=== PATIENT | male | born 1980 | race African-American/Black ===

== ENCOUNTER 2017-04-08 18:33 | Emergency (ER) | payer OTHER ==
[~2017-04-08] VITALS: Ht 167.6 cm; Wt 65.8 kg
[~2017-04-08 18:33] MED LIST: NORCO 5-325 TA1 EACH PO; PENICILLIN VK500 M1 PO
[2017-04-08] MEDS ORDERED: NAPROSYN500 MG PO (19:36)
[2017-04-08] MEDS ORDERED: MUCINEX D TABL1 EAC1 PO (19:36)
== END 2017-04-08 20:23 | disposition home or self-care (01) ==
LOC: ER 18:33
DX: J11.1 Influenza due to unidentified influenza virus with other respiratory manifestations (principal)

== ENCOUNTER 2017-05-04 04:58 | Emergency (ER) | payer OTHER ==
[~2017-05-04] VITALS: Ht 175.3 cm; Wt 82.6 kg
[~2017-05-04 04:58] MED LIST changes: +MUCINEX D TABL1 EAC1 PO; +NAPROSYN500 MG PO
[2017-05-04] MEDS ORDERED: EXCEDRIN CAPLE1 EACH PO (05:09)
[2017-05-04 05:31] LABS: URINE BILIRUBIN NEGATIVE (Negative); URINE BLOOD 3+ (Negative); URINE CLARITY CLEAR; URINE COLOR YELLOW; URINE GLUCOSE-RANDOM* NEGATIVE (Negative); URINE KETONES NEGATIVE (Negative); URINE LEUKOCYTES-REFLEX NEGATIVE (Negative); URINE NITRITE-REFLEX NEGATIVE (Negative); URINE PROTEIN (DIPSTICK) NEGATIVE (Negative); URINE SPECIFIC GRAVITY 1.025 (1.005-1.035)
[2017-05-04 05:42] LABS: MCH 32.7 pg (26.0-34.0); MCV 96.4 fL (80.0-100.0); PLATELET COUNT 220 thou/uL (150-400); RBC 4.57 mil/uL (4.50-6.00); RDW 12.8 % (10.5-14.5); WBC 3.6 thou/uL (4.0-11.0)
[2017-05-04 05:49] LABS: CALCIUM 8.7 mg/dL (8.5-10.1); CREATININE 0.9 mg/dL (0.7-1.3); POTASSIUM 4.4 mmol/L (3.5-5.1)
[2017-05-04 05:54] LABS: SQUAMOUS 0-3 Few /LPF (0-3)
[2017-05-04 05:55] LABS: ALBUMIN 3.8 g/dL (3.4-5.0); TOTAL BILIRUBIN 0.4 mg/dL (<0.1-1.0); TOTAL PROTEIN 7.2 g/dL (6.4-8.2)
[2017-05-04 05:55] LABS: BACTERIA-REFLEX None Seen /HPF (None Seen); CASTS None Seen /LPF (None Seen); CRYSTALS None Seen /LPF (None Seen); MUCUS 0-3 Light strn/LPF (None Seen); URINE RBC >20 Many /HPF (0-2); URINE WBC-REFLEX None Seen /HPF (0-5)
[2017-05-04 06:12] LABS: ABSOLUTE NEUTROPHILS 1.9 thou/uL (1.4-8.2); ATYPICAL LYMPHS 12 %
[2017-05-04] MEDS ORDERED: OXYCODONE HCL 55 MG PO (06:43)
[2017-05-04] MEDS ORDERED: FLOMAX0.4 MG PO (06:43)
== END 2017-05-04 07:03 | disposition home or self-care (01) ==
LOC: ER 04:58
PROVIDERS: Emergency Medicine
DX: N20.1 Calculus of ureter (principal)

== ENCOUNTER 2017-07-03 19:01 | Emergency (ER) | payer OTHER ==
[~2017-07-03] VITALS: Ht 172.7 cm; Wt 84.4 kg
--- NOTE | ~2017-07-03 | EKG ---
[address] [place] [address] ELECTROCARDIOGRAM REPORT Name: SUSSY ALEGRE [id number] Admission: 07/03/17 Attend Phys: Discharge: 07/03/17 Date of : 82 Report #: [id number] THIS REPORT FOR: //name// 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
[~2017-07-03 19:01] MED LIST changes: +EXCEDRIN CAPLE1 EACH PO; +FLOMAX0.4 MG PO; +OXYCODONE HCL 55 MG PO
[2017-07-03 19:34] LABS: ABSOLUTE NEUTROPHILS 2.5 thou/uL (1.4-8.2); EOSINOPHILS 3.2 % (0.0-3.0); HEMATOCRIT 44.2 % (42.0-52.0); HEMOGLOBIN 15.4 gm/dL (14.0-18.0); LYMPHOCYTES 40.7 % (24.0-44.0); MCH 32.6 pg (26.0-34.0); MCHC 34.7 g/dL (28.0-37.0); MCV 93.7 fL (80.0-100.0); MONOCYTES 10.8 % (1.0-8.0); PLATELET COUNT 193 thou/uL (150-400); POLYS 44.3 % (36.0-66.0); RBC 4.72 mil/uL (4.50-6.00); RDW 12.8 % (10.5-14.5); WBC 5.7 thou/uL (4.0-11.0)
[2017-07-03 19:53] LABS: ANION GAP 10 mmol/L (7-16); BUN 19 mg/dL (7-18); CALCIUM 9.3 mg/dL (8.5-10.1); CHLORIDE 105 mmol/L (98-107); CO2 27 mmol/L (21-32); CREATININE 1.1 mg/dL (0.7-1.3); GLUCOSE 110 mg/dL (74-106); POTASSIUM 3.9 mmol/L (3.5-5.1); SODIUM 142 mmol/L (136-145)
[2017-07-03 20:01] LABS: TROPONIN-I < 0.04 ng/mL (<0.06)
[2017-07-03 20:27] LABS: URINE BILIRUBIN NEGATIVE (Negative); URINE BLOOD NEGATIVE (Negative); URINE CLARITY SL CLOUDY; URINE COLOR YELLOW; URINE GLUCOSE-RANDOM* NEGATIVE (Negative); URINE KETONES TRACE (Negative); URINE LEUKOCYTES-REFLEX NEGATIVE (Negative); URINE NITRITE-REFLEX NEGATIVE (Negative); URINE PROTEIN (DIPSTICK) 1+ (Negative)
[2017-07-03 20:36] LABS: AMP/METHAMP Negative (Negative); BACTERIA-REFLEX None Seen /HPF (None Seen); BARBITURATES Negative (Negative); BENZODIAZEPINES Negative (Negative); CASTS None Seen /LPF (None Seen); COCAINE Negative (Negative); METHADONE Negative (Negative); MUCUS >6 Heavy strn/LPF (None Seen); OPIATES Negative (Negative); PCP Negative (Negative); SQUAMOUS 0-3 Few /LPF (0-3); URINE RBC 0-2 Rare /HPF (0-2); URINE WBC-REFLEX 0-5 Rare /HPF (0-5)
[2017-07-03 20:37] LABS: AMORPHOUS PHOSPHATES Many /LPF (None Seen)
[2017-07-03] MEDS ORDERED: ANTIVERT25 MG PO (20:44)
== END 2017-07-03 21:13 | disposition home or self-care (01) ==
LOC: ER 19:01
PROVIDERS: Physician Assistant
DX: R51 Headache (principal); R42 Dizziness and giddiness; R06.02 Shortness of breath; F17.210 Nicotine dependence, cigarettes, uncomplicated

== ENCOUNTER 2017-10-05 06:11 | Emergency (ER) | payer OTHER ==
[~2017-10-05] VITALS: Ht 172.7 cm; Wt 83.9 kg
[~2017-10-05 06:11] MED LIST changes: +ANTIVERT25 MG PO
[2017-10-05] MEDS ORDERED: BUPROPION HCL150 M1 PO (06:24)
[2017-10-05 06:29] LABS: URINE BLOOD NEGATIVE (Negative); URINE CLARITY CLEAR; URINE COLOR YELLOW; URINE GLUCOSE-RANDOM* NEGATIVE (Negative); URINE KETONES NEGATIVE (Negative); URINE LEUKOCYTES-REFLEX NEGATIVE (Negative); URINE NITRITE-REFLEX NEGATIVE (Negative); URINE PROTEIN (DIPSTICK) NEGATIVE (Negative); URINE SPECIFIC GRAVITY >= 1.030 (1.005-1.035); URINE UROBILINOGEN 0.2 E.U./dl (0.2-1.0)
[2017-10-05 06:31] LABS: ICTOTEST (BILI CONFIRMATORY) Negative (Negative); URINE BILIRUBIN NEGATIVE (Negative)
[2017-10-05 06:49] LABS: HEMATOCRIT 46.2 % (42.0-52.0); MCH 33.1 pg (26.0-34.0); MCHC 34.6 g/dL (28.0-37.0); MCV 95.6 fL (80.0-100.0); PLATELET COUNT 169 thou/uL (150-400); RBC 4.83 mil/uL (4.50-6.00); RDW 12.7 % (10.5-14.5); WBC 3.8 thou/uL (4.0-11.0)
[2017-10-05 06:58] LABS: CALCIUM 9.2 mg/dL (8.5-10.1); CREATININE 1.1 mg/dL (0.7-1.3); POTASSIUM 3.9 mmol/L (3.5-5.1)
[2017-10-05 07:04] LABS: ALBUMIN 3.9 g/dL (3.4-5.0); TOTAL BILIRUBIN 0.6 mg/dL (<0.1-1.0); TOTAL PROTEIN 7.2 g/dL (6.4-8.2)
[2017-10-05 08:08] VITALS: BP 128/83
[2017-10-05 08:12] LABS: ABSOLUTE NEUTROPHILS 2.5 thou/uL (1.4-8.2); PLATELET ESTIMATE NORMAL
== END 2017-10-05 08:09 | disposition home or self-care (01) ==
LOC: ER 06:11
PROVIDERS: Emergency Medicine
DX: R10.9 Unspecified abdominal pain (principal); F17.210 Nicotine dependence, cigarettes, uncomplicated

== ENCOUNTER 2017-11-08 01:04 | Emergency (ER) | payer OTHER ==
[~2017-11-08] VITALS: Ht 175.3 cm; Wt 83.9 kg
--- NOTE | ~2017-11-08 | EKG ---
[place] [address] [address] 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 NASH : 1980 Requested By: Saúl Thompson Order Number: [id number] MD: Aashish Salazar Measurements Intervals [place] Rate: 71 P: 68 [place]: 147 QRS: 0 QRSD: 90 T: 46 QT: 362 QTc: 394 Interpretive Statements Sinus arrhythmia ST elev, probable normal early repol pattern Compared to ECG 07/03/2017 19:09:13 no significant change was found Electronically Signed On 11-08-2017 8:08:18 CDT by Aashish Salazar [email or web address] <ELECTRONICALLY SIGNED> By: Aashish Salazar MD, [facility] 11/08/17 0808 117 7 Aashish Salazar MD, FAC /EPI
[~2017-11-08 01:04] MED LIST changes: +BUPROPION HCL150 M1 PO
[2017-11-08 01:53] LABS: URINE BILIRUBIN NEGATIVE (Negative); URINE BLOOD NEGATIVE (Negative); URINE CLARITY CLEAR; URINE COLOR YELLOW; URINE GLUCOSE-RANDOM* NEGATIVE (Negative); URINE KETONES NEGATIVE (Negative); URINE LEUKOCYTES-REFLEX NEGATIVE (Negative); URINE NITRITE-REFLEX NEGATIVE (Negative); URINE PROTEIN (DIPSTICK) NEGATIVE (Negative)
[2017-11-08 01:57] LABS: ABSOLUTE NEUTROPHILS 2.6 thou/uL (1.4-8.2); BASOPHILS 0.9 % (0.0-2.0); EOSINOPHILS 1.4 % (0.0-3.0); HEMATOCRIT 42.9 % (42.0-52.0); HEMOGLOBIN 14.8 gm/dL (14.0-18.0); LYMPHOCYTES 36.5 % (24.0-44.0); MCH 33.3 pg (26.0-34.0); MCHC 34.6 g/dL (28.0-37.0); MCV 96.4 fL (80.0-100.0); MONOCYTES 8.4 % (1.0-8.0); PLATELET COUNT 210 thou/uL (150-400); POLYS 52.8 % (36.0-66.0); RBC 4.45 mil/uL (4.50-6.00); RDW 13.3 % (10.5-14.5)
[2017-11-08 02:02] LABS: ANION GAP 11 mmol/L (7-16); BUN 10 mg/dL (7-18); CALCIUM 9.1 mg/dL (8.5-10.1); CHLORIDE 104 mmol/L (98-107); CO2 25 mmol/L (21-32); CREATININE 1.1 mg/dL (0.7-1.3); GLUCOSE 98 mg/dL (74-106); POTASSIUM 3.7 mmol/L (3.5-5.1); SODIUM 140 mmol/L (136-145)
[2017-11-08 02:02] LABS: AMP/METHAMP Negative (Negative); BARBITURATES Negative (Negative); BENZODIAZEPINES Negative (Negative); COCAINE Negative (Negative); METHADONE Negative (Negative); OPIATES Negative (Negative); PCP Negative (Negative)
[2017-11-08 02:18] LABS: ALBUMIN 4.4 g/dL (3.4-5.0); MAGNESIUM 1.8 mg/dL (1.8-2.4); SALICYLATE 6.3 mg/dL (2.8-20.0); SGOT 81 U/L (15-37); SGPT 50 U/L (30-65); TOTAL BILIRUBIN 0.4 mg/dL (<0.1-1.0); TOTAL PROTEIN 7.8 g/dL (6.4-8.2); TROPONIN-I <0.06 ng/mL (<0.06)
[2017-11-08 03:57] VITALS: BP 125/77
== END 2017-11-08 03:58 | disposition home or self-care (01) ==
LOC: ER 01:04
PROVIDERS: Emergency Medicine
DX: M62.82 Rhabdomyolysis (principal); F90.9 Attention-deficit hyperactivity disorder, unspecified type; F17.210 Nicotine dependence, cigarettes, uncomplicated